=== PATIENT | male | born 1985 | race Caucasian/White ===

== ENCOUNTER 2018-03-18 21:00 | Inpatient (IN) | payer MEDICAID ==
[~2018-03-18] VITALS: Ht 182.9 cm; Wt 110.0 kg
[~2018-03-18 21:00] MED LIST: METF500T PO
[2018-03-18] MEDS ORDERED: normal saline 1000ML IV soln IV ONE (22:20)
[2018-03-18 22:50] LABS: ABG BASE EXCESS -2.8 mmol/L (-2.0-3.0); ABG HCO3 21.6 mmol/L (22.0-26.0); ABG OXYGEN SATURATION 95.7 % (95-98); ABG PCO2 (T) 36.5 mmHg (35.0-48.0); ABG PH (T) 7.389 (7.350-7.450); ABG PO2 (T) 75.7 mmHg (83-108); ALLEN'S TEST Positive; FCOHb 2.3 % (0.5-1.5); FMetHb 0.1 % (0.3-1.12); FO2Hb 93.4 % (94-100); PATIENT TEMPERATURE 36.7; TOTAL HEMOGLOBIN 15.7 G/dl (14.0-18.0)
[2018-03-18 23:06] LABS: BASOPHILS % (AUTO) 0.2 % (0-1); EOSINOPHILS # (AUTO) 0.1 X10'3 (0-0.9); EOSINOPHILS % (AUTO) 0.9 % (0-6); HEMATOCRIT 44.7 % (42.0-52.0); HEMOGLOBIN 15.4 g/dl (14.0-17.9); LYMPHOCYTES # (AUTO) 1.6 X10'3 (1.1-4.8); LYMPHOCYTES % (AUTO) 12.5 % (21-51); MEAN CORPUSCULAR HEMOGLOBIN 28.5 PG (27.0-31.0); MEAN CORPUSCULAR HGB CONC 34.5 % (33.0-36.5); MEAN CORPUSCULAR VOLUME 82.6 FL (78-98); MEAN PLATELET VOLUME 9.4 FL (7.4-10.4); MONOCYTES # (AUTO) 0.4 X10'3 (0-0.9); MONOCYTES % (AUTO) 2.8 % (2-12); NEUTROPHILS # (AUTO) 10.7 X10'3 (1.8-7.7); NEUTROPHILS % (AUTO) 83.6 % (42-75); PLATELET COUNT 305 X10'3 (140-440); RED BLOOD COUNT 5.41 X10'6 (4.70-6.10); RED CELL DISTRIBUTION WIDTH 13.1 % (11.5-14.5); WHITE BLOOD COUNT 12.7 X10'3 (4.5-11.0)
[2018-03-18 23:30] LABS: ALBUMIN 3.9 G/DL (3.4-5.0); BILIRUBIN,TOTAL 0.6 MG/DL (0.1-1.0); BLOOD UREA NITROGEN 13 MG/DL (7-18); BUN/CREATININE RATIO 14.4 (5.4-32.0); CHLORIDE 97 MMOL/L (99-107); LIPASE 1020 U/L (73-393); MAGNESIUM 1.4 MG/DL (1.5-2.4); SODIUM 132 MMOL/L (135-145); TOTAL PROTEIN 7.8 G/DL (6.4-8.2); eGFR > 90 ML/MIN
[2018-03-18 23:36] LABS: CLARITY,URINE CLEAR (Clear); COLOR,URINE YELLOW (Yellow); GLUCOSE, URINE >=1000 mg/dl (Neg); KETONES,URINE 15 mg/dl (Neg); LEUKOCYTE ESTERASE ,URINE NEGATIVE (Neg); NITRITES, URINE NEGATIVE (Neg); OCCULT BLOOD,URINE NEGATIVE (Neg); PH,URINE 5.5 (4.8-8.0); PROTEIN,URINE NEGATIVE (Neg); UA COLLECTION TYPE CLN CATCH MIDSTREAM; UROBILINOGEN,URINE 0.2 E.U/dL (0.2-1.0)
[2018-03-18 23:39] LABS: HDL CHOLESTEROL 21 MG/DL (35-60); LDL CHOLESTEROL 55 MG/DL (50-100)
[2018-03-18 23:42] LABS: BACTERIA,URINE NONE SEEN /HPF (Neg); MUCUS STRANDS NONE SEEN /LPF (Neg); RBC,URINE NONE SEEN /HPF (0-2); SQUAMOUS EPITHELIAL CELL,UR FEW /LPF (FEW); WBC,URINE NONE SEEN /HPF (0-4)
[2018-03-18 23:47] LABS: ALANINE AMINOTRANSFERASE 41 U/L (12-78); ALKALINE PHOSPHATASE 49 IU/L (46-116); ANION GAP 24 (8-16); ASPARTATE AMINO TRANSFERASE 65 U/L (10-37); CHOL/HDL RATIO 11.9 (0.00-4.99); CHOLESTEROL 250 MG/DL (0-200)
[2018-03-18 23:51] LABS: ETHANOL < 0.010 GM/DL (0.0-0.010); GLUCOSE 304 MG/DL (70-104); TOTAL CARBON DIOXIDE 11.1 MMOL/L (24-32)
[2018-03-18 23:53] LABS: POTASSIUM 5.3 MMOL/L (3.5-5.1)
[2018-03-19] MEDS ORDERED: morphine 4 MG/ML inj SYRINge IV ONE (00:10)
[2018-03-19] MEDS ORDERED: ondansetron/PF 4mg/2ml inj IV ONE (00:10)
[2018-03-19] MEDS ORDERED: HYDROmorphone 1 mg/ml syringe IV PRN (01:00)
[2018-03-19] MEDS ORDERED: CADD PCA waste documentation MC PRN (01:05)
[2018-03-19] MEDS ORDERED: dextrose 50%-water 50ml dispensing syringe IV PRN ×2 (01:05)
[2018-03-19] MEDS ORDERED: MESSAGE TO PHARMACY PO ONE (01:05)
[2018-03-19] MEDS ORDERED: glucagon, human recombinant 1mg kit SUBCUT PRN (01:05)
[2018-03-19] MEDS ORDERED: naloxone 0.4 mg/ml inj IV PRN (01:05)
[2018-03-19] MEDS ORDERED: dextrose ORAL solution 15 GM/59 ML bottle PO PRN ×2 (01:05)
[2018-03-19 01:35] LABS: HEMOGLOBIN A1C 10.4 % (4.5-6.2)
[2018-03-19 02:15] VITALS: BP 131/87
[2018-03-19] MEDS: normal saline 1000ml 1,000 ML IV SCH ×2 (02:15→13:55)
[2018-03-19] MEDS: HYDROmorphone/NS 1 mg/ml CADD 50 ML IV SCH ×6 (02:17→13:00)
[2018-03-19] MEDS: ondansetron/PF 4mg/2ml inj IV PRN ×2 (02:31→10:00)
[2018-03-19 02:50] LABS: TRIGLYCERIDES 1239 MG/DL (20-135)
[2018-03-19] MEDS ORDERED: HYDROmorphone/NS 1 mg/ml CADD 50 ML IV SCH (03:00)
[2018-03-19 07:00] VITALS: BP 118/65
[2018-03-19] MEDS ORDERED: heparin, porcine 5000 units/ml vial SQ SCH (08:00)
[2018-03-19 09:35] LABS: ALBUMIN 3.3 G/DL (3.4-5.0); ANION GAP 9 (8-16); BLOOD UREA NITROGEN 7 MG/DL (7-18); BUN/CREATININE RATIO 8.8 (5.4-32.0); CALCIUM 8.5 MG/DL (8.5-10.1); CHLORIDE 99 MMOL/L (99-107); GLUCOSE 259 MG/DL (70-104); SODIUM 136 MMOL/L (135-145); TOTAL CARBON DIOXIDE 28.1 MMOL/L (24-32); eGFR > 90 ML/MIN
[2018-03-19 10:02] LABS: POTASSIUM 4.4 MMOL/L (3.5-5.1)
[2018-03-19] MEDS: insulin Lispro (HumaLOG) vial - multi-dose SQ SCH ×2 (10:23→13:54)
[2018-03-19 11:00] VITALS: BP 114/45
[2018-03-19] MEDS ORDERED: insulin glargine (Lantus) pen - multi-dose SQ SCH (21:00)
== END 2018-03-19 17:05 | disposition left against medical advice (07) | DRG 282 ==
LOC: ER 21:01 → ED HOLD 03-19 00:59 → SUR 3N 03-19 02:37
PROVIDERS: ADMIT Internal Medicine; ATTEND Family Medicine
DX: K85.90 Acute pancreatitis without necrosis or infection, unspecified (principal); E11.65 Type 2 diabetes mellitus with hyperglycemia; E87.2 Acidosis; E87.5 Hyperkalemia; E78.1 Pure hyperglyceridemia; E78.5 Hyperlipidemia, unspecified; Z53.21 Procedure and treatment not carried out due to patient leaving prior to being seen by health care provider; F12.90 Cannabis use, unspecified, uncomplicated; I10 Essential (primary) hypertension; Z79.4 Long term (current) use of insulin; Z91.14 Patient's other noncompliance with medication regimen
CPT/HCPCS: 36415; 36600; 80048; 80053; 80061; 80320; 81001; 82803; 82948; 83036; 83605; 83690; 83735; 84145; 84478; 85018; 85025; 87040; 87070; 96361; 96374; 96375; 99285; G0378; J1170; J1644; J1815; J2270; J2405; J7030

== ENCOUNTER 2020-10-08 04:03 | Emergency (ER) | payer MEDICAID ==
[~2020-10-08] VITALS: Ht 182.9 cm; Wt 104.5 kg
[2020-10-08 04:46] LABS: BASOPHILS # (AUTO) 0.1 X10'3 (0-0.2); BASOPHILS % (AUTO) 0.7 % (0-1); EOSINOPHILS # (AUTO) 0.1 X10'3 (0-0.9); EOSINOPHILS % (AUTO) 0.9 % (0-6); HEMATOCRIT 42.8 % (42.0-52.0); HEMOGLOBIN 14.6 g/dl (14.0-17.9); LYMPHOCYTES # (AUTO) 3.1 X10'3 (1.1-4.8); LYMPHOCYTES % (AUTO) 31.3 % (21-51); MEAN CORPUSCULAR HEMOGLOBIN 28.9 PG (27.0-31.0); MEAN CORPUSCULAR HGB CONC 34.2 g/dL (33.0-36.5); MEAN CORPUSCULAR VOLUME 84.4 FL (78-98); MONOCYTES # (AUTO) 0.8 X10'3 (0-0.9); MONOCYTES % (AUTO) 8.5 % (2-12); NEUTROPHILS # (AUTO) 5.8 X10'3 (1.8-7.7); NEUTROPHILS % (AUTO) 58.6 % (42-75); PLATELET COUNT 330 X10'3 (140-440); RED BLOOD COUNT 5.07 X10'6 (4.70-6.10); RED CELL DISTRIBUTION WIDTH 13.3 % (11.5-14.5); WHITE BLOOD COUNT 9.9 X10'3 (4.5-11.0)
[2020-10-08] MEDS ORDERED: NO HOME MEDS (04:47)
[2020-10-08 05:02] LABS: ALANINE AMINOTRANSFERASE 36 U/L (12-78); ALBUMIN 4.1 G/DL (3.4-5.0); ALBUMIN/GLOBULIN RATIO 1.3 (1.1-1.5); ALKALINE PHOSPHATASE 50 IU/L (46-116); ANION GAP 13 (8-16); ASPARTATE AMINO TRANSFERASE 15 U/L (10-37); BILIRUBIN,TOTAL 1.5 MG/DL (0.1-1.0); BLOOD UREA NITROGEN 22 MG/DL (7-18); BUN/CREATININE RATIO 22.2 (5.4-32.0); CALCIUM 8.6 MG/DL (8.5-10.1); CHLORIDE 100 MMOL/L (99-107); CREATININE 0.99 MG/DL (0.60-1.10); GLUCOSE 297 MG/DL (70-104); POTASSIUM 3.3 MMOL/L (3.5-5.1); SODIUM 138 MMOL/L (135-145); TOTAL CARBON DIOXIDE 24.8 MMOL/L (24-32); TOTAL PROTEIN 7.3 G/DL (6.4-8.2); eGFR 87 ML/MIN
[2020-10-08 05:11] LABS: ETHANOL < 0.010 GM/DL (0.0-0.010)
[2020-10-08] MEDS ORDERED: potassium Cl 20 mEq SR tablet PO STA (05:36)
--- NOTE | 2020-10-08 05:47 | NUR ---
Patient was able to swallow potassium pill- states "that didn't taste so bad, it could've been worse, I could be "
[2020-10-08 06:01] LABS: URINE AMPHETAMINE SCREEN POSITIVE (Neg); URINE BARBITUATE SCREEN NEGATIVE (Neg); URINE BENZODIAZEPINES SCREEN NEGATIVE (Neg); URINE CANNABINOID SCREEN POSITIVE (Neg); URINE COCAINE SCREEN NEGATIVE (Neg); URINE METHADONE SCREEN NEGATIVE (Neg); URINE OPIATE SCREEN NEGATIVE (Neg); URINE PHENCYCLIDINE SCREEN NEGATIVE (Neg)
[2020-10-08] MEDS ORDERED: METF-436 PO (06:01)
--- NOTE | 2020-10-08 06:54 | NUR ---
took pt cellphone and put it in a bag, labelled with pt identifier and put in a locked room.
[2020-10-08] MEDS ORDERED: metFORMIN 500mg tablet PO SCH (08:00)
--- NOTE | 2020-10-08 11:05 | NUR ---
PT IS LAYING DOWN, RELAXING IN HIS BED. PT STATED HE DID NOT ANYTHING. WILL CONTINUE TO MONITOR.
[2020-10-08 11:10] VITALS: BP 159/102
== END 2020-10-08 13:39 | disposition home or self-care (01) ==
LOC: ER 04:03
DX: E11.40 Type 2 diabetes mellitus with diabetic neuropathy, unspecified (principal); F15.10 Other stimulant abuse, uncomplicated; I10 Essential (primary) hypertension; E11.9 Type 2 diabetes mellitus without complications; F12.90 Cannabis use, unspecified, uncomplicated; Z72.89 Other problems related to lifestyle; Z79.84 Long term (current) use of oral hypoglycemic drugs; Z79.899 Other long term (current) drug therapy
CPT/HCPCS: 36415; 80053; 80305; 80320; 84443; 85025; 99284

== ENCOUNTER 2021-06-10 04:44 | Emergency (ER) | payer MEDICAID, OTHER ==
[~2021-06-10] VITALS: Ht 205.7 cm; Wt 250.0 kg
[~2021-06-10 04:44] MED LIST changes: +METF-436 PO; -METF500T PO
--- NOTE | 2021-06-10 06:11 | NUR ---
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 The pt is a/o, nad, denies sorethroat, fever/chills, cp, n/v/d, or gu symptoms; skin is w/d; pt provided a urine cup; placed on monitor. [facility] [place].
--- NOTE | 2021-06-10 06:14 | NUR ---
Urine collected and sent
--- NOTE | 2021-06-10 06:15 | NUR ---
ASSUMED CARE OF PT. PT. LAYING IN BED AND DID NOT APPEAR IN ANY DISTRESS. AWAITING MD RE-EVAL.
[2021-06-10 06:18] VITALS: BP 149/85
[2021-06-10 06:36] LABS: URINE AMPHETAMINE SCREEN NEGATIVE (Neg); URINE BARBITUATE SCREEN NEGATIVE (Neg); URINE BENZODIAZEPINES SCREEN NEGATIVE (Neg); URINE CANNABINOID SCREEN POSITIVE (Neg); URINE COCAINE SCREEN NEGATIVE (Neg); URINE METHADONE SCREEN NEGATIVE (Neg); URINE OPIATE SCREEN NEGATIVE (Neg); URINE PHENCYCLIDINE SCREEN NEGATIVE (Neg)
== END 2021-06-10 07:52 | disposition home or self-care (01) ==
LOC: ER 04:44
DX: F12.90 Cannabis use, unspecified, uncomplicated (principal); R42 Dizziness and giddiness; R06.02 Shortness of breath; E11.9 Type 2 diabetes mellitus without complications; I10 Essential (primary) hypertension; F17.200 Nicotine dependence, unspecified, uncomplicated; Z87.19 Personal history of other diseases of the digestive system; Z72.89 Other problems related to lifestyle; Z79.4 Long term (current) use of insulin
CPT/HCPCS: 80305; 99283